=== PATIENT | female | born 1995 | race African-American/Black ===

== ENCOUNTER 2017-02-02 14:30 | Emergency (ER) | payer MEDICAID, OTHER ==
[~2017-02-02] VITALS: Ht 157.5 cm; Wt 71.0 kg
[~2017-02-02 14:30] MED LIST: ATOM60 PO; GUAN1 PO; Z.0.NO CURRENT MEDS
[2017-02-02 14:32] VITALS: BP 152/72; PULSE 95; RESP 16; TEMP 98; O2SAT 99
[2017-02-02] MEDS ORDERED: SODIUM CHLOR 0.9% 1000 ML INJ 1,000 ML IV ONE (14:57)
[2017-02-02] MEDS: ONDANSETRON HCL 4 MG/2 ML VIAL IV PUSH ONE ×2 (15:00→15:50)
[2017-02-02] MEDS ORDERED: SODIUM CHLORIDE 0.9% FLUSH 10 ML FLUSH IVF PRN (15:00)
--- NOTE | 2017-02-02 15:02 | PD ---
HPI Chief Complaint: GI Complaint Time Seen by Provider: 14:53 Travel History International Travel<30 days: No Contact w/Intl Traveler<30days: No Traveled to known affect area: No History of Present Illness HPI 21-year-old female presents to the emergency department for evaluation nausea and vomiting that started yesterday. She states she vomited twice yesterday and has been nauseous all day today. Patient denies any fevers or chills. No cough or congestion. No chest pain or shortness breath. No abdominal pain. No diarrhea or constipation. Patient does not believe she is , but is unsure. Patient has no medical problems and takes no prescribed medications. No exacerbating or alleviating factors. Moderate severity. PFSH Past Medical History Hx Anticoagulant Therapy: No ADHD: Yes Cardiovascular Problems: No Chemotherapy: No Cerebrovascular Accident: No Developmental Delay: No Diabetes: No Diminished Hearing: No Respiratory: No Immunizations Current: Yes ?: Unknown LMP: she does not remember Past Surgical History Hysterectomy: No Social History Alcohol Use: No Tobacco Use: No Substance Use: No Allergies-Medications (Allergen,Severity, Reaction): Coded Allergies: No Known Allergies (Verified , 10/29/11) Reported Meds & Prescriptions Reported Meds & Active Scripts Active Macrobid (Nitrofurantoin Monohydrate Macrocrystals) 100 Mg Capsule 100 Mg PO BID 7 Days Tenex (Guanfacine HCl) 1 Mg Tab 1 Mg PO HS Strattera (Atomoxetine HCl) 60 Mg Cap 60 Mg PO DAILY Reported No Current Meds (Miscellaneous Medication) Misc Review of Systems Except as stated in HPI: all other systems reviewed are Neg Physical Exam Narrative GENERAL: Well-nourished, well-developed female patient, ambulatory. Afebrile. SKIN: Focused skin assessment warm/dry. HEAD: Normocephalic. Atraumatic. No meningeal signs. EYES: No scleral icterus. No injection or drainage. NECK: Supple, trachea midline. No JVD or lymphadenopathy. CARDIOVASCULAR: Regular rate and rhythm without murmurs, gallops, or rubs. RESPIRATORY: Breath sounds equal bilaterally. No accessory muscle use. Lungs sounds are clear to auscultation. GASTROINTESTINAL: Abdomen soft, non-tender, nondistended. MUSCULOSKELETAL: No cyanosis, or edema. BACK: Nontender without obvious deformity. No CVA tenderness. GENITOURINARY: Normal external genitalia without lesions or erythema. Vaginal vault with small amount of white drainage. Cervical os was closed without drainage. No cervical motion tenderness. Uterus nontender and nonenlarged. Bilateral adnexa nontender without masses. This exam was done with RN at bedside. Data Data Last Documented VS Vital Signs Date Time Temp Pulse Resp B/P (MAP) Pulse Ox O2 Delivery O2 Flow Rate FiO2 02/02/17 14:32 98.0 95 16 152/72 (98) 99 Orders Orders Complete Blood Count With Diff (02/02/17 14:57) Basic Metabolic Panel (Bmp) (02/02/17 14:57) Urinalysis - C+S If Indicated (02/02/17 14:57) Iv Access Insert/Monitor (02/02/17 14:57) Ecg Monitoring (02/02/17 14:57) Oximetry (02/02/17 14:57) Ondansetron Inj (Zofran Inj) (02/02/17 15:00) Sodium Chlor 0.9% 1000 Ml Inj (Ns 1000 M (02/02/17 14:57) Sodium Chloride 0.9% Flush (Ns Flush) (02/02/17 15:00) Ed Urine Pregnancytest Poc (02/02/17 14:57) Gc And Chlamydia Pcr (02/02/17 16:03) Wet Prep Profile (02/02/17 16:03) Urine Culture (02/02/17 16:08) Labs Laboratory Tests Test 02/02/17 15:05 02/02/17 15:15 02/02/17 15:24 02/02/17 15:25 Urine Color YELLOW Urine Turbidity CLEAR Urine pH 6.5 Urine Specific [place] 1.036 Urine Protein 30 mg/dL Urine Glucose (UA) NEG mg/dL Urine Ketones TRACE mg/dL Urine Occult Blood NEG Urine Nitrite NEG Urine Bilirubin NEG Urine Urobilinogen 2.0 MG/DL Urine Leukocyte Esterase MOD Urine RBC LESS THAN 1 /hpf Urine WBC 2 /hpf Urine Squamous Epithelial Cells 5 /hpf Urine Bacteria OCC /hpf Urine Mucus FEW /lpf Microscopic Urinalysis Comment CULT NOT INDICATED White Blood Count 18.0 TH/MM3 Red Blood Count 3.52 MIL/MM3 Hemoglobin 12.4 GM/DL Hematocrit 36.6 % Mean Corpuscular Volume 104.0 FL Mean Corpuscular Hemoglobin 35.4 PG Mean Corpuscular Hemoglobin Concent 34.0 % Red Cell Distribution Width 12.9 % Platelet Count 249 TH/MM3 Mean Platelet Volume 9.7 FL Neutrophils (%) (Auto) 74.5 % Lymphocytes (%) (Auto) 16.1 % Monocytes (%) (Auto) 9.1 % Eosinophils (%) (Auto) 0.1 % Basophils (%) (Auto) 0.2 % Neutrophils # (Auto) 13.4 TH/MM3 Lymphocytes # (Auto) 2.9 TH/MM3 Monocytes # (Auto) 1.6 TH/MM3 Eosinophils # (Auto) 0.0 TH/MM3 Basophils # (Auto) 0.0 TH/MM3 CBC Comment DIFF FINAL Differential Comment Blood Urea Nitrogen 12 MG/DL Creatinine 0.52 MG/DL Random Glucose 76 MG/DL Calcium Level 8.1 MG/DL Sodium Level 138 MEQ/L Potassium Level 4.0 MEQ/L Chloride Level 109 MEQ/L Carbon Dioxide Level 22.7 MEQ/L Anion Gap 6 MEQ/L Estimat Glomerular Filtration Rate 177 ML/MIN Clue Cells (Wet Prep) NONE SEEN Vaginal Trichomonas (Wet Prep) NONE SEEN Vaginal Yeast (Wet Prep) NONE SEEN MDM Medical Decision Making Medical Screen Exam Complete: Yes Emergency Medical Condition: Yes Medical Record Reviewed: Yes Differential Diagnosis Gastroenteritis versus UTI versus versus electrolyte abnormality Narrative Course 21-year-old female presents to the emergency department for evaluation nausea vomiting started yesterday. She appears well on exam. CBC, BMP, UA, urine test are ordered and pending. Patient is given normal saline 1 L IV bolus, Zofran 4 mg IV. After patient had positive test, she is asking for food and refusing Zofran. CBC shows leukocytosis 18.0. BMP shows no acute abnormality. UA shows moderate leukocyte esterase, occasional bacteria. UPT is positive. Shows leukocytosis of 18.0. Her abdomen is completely benign on exam. She denies any abnormal vaginal discharge or risk of STDs. However, pelvic exam will be performed for further evaluation. Wet prep is negative. Patient reports being with the same sexual partner for 5 years. She has no CMT on exam. Patient will be discharged prescription for Macrobid for bacteriuria in the urine. She is to follow-up with an ramp agent. She verbalizes agreement. Prior evaluation, patient is talking on her cell phone and is in no distress. The patient was discharged in stable condition with instructions, including return instructions and follow up instructions. Diagnosis Primary Impression: Qualified Codes: Z34.90 - Encounter for supervision of normal , unspecified, unspecified trimester Additional Impression: Urinary tract infection Qualified Codes: N30.00 - Acute cystitis without hematuria Referrals: [facility] call for appointment Patient Instructions: First Trimester (ED), General Instructions Additional Instructions: Take Macrobid as directed until gone for UTI. Follow-up with an ramp agent. Return to the emergency department for any acute worsening of symptoms. Med/Other Pt SpecificInfo: Prescription(s) given Scripts Nitrofurantoin Monohydrate Macrocrystals (Macrobid) 100 Mg Capsule 100 MG PO BID for Infection for 7 Days, #14 CAP 0 Refills Prov: Rosa Bhardwaj 02/02/17 Disposition: 01 DISCHARGE HOME Condition: Stable Rosa Bhardwaj Feb 02, 2017 15:02
[2017-02-02 15:44] LABS: AUTOMATED NEUTROPHIL # 13.4 TH/MM3 (1.8-7.7); BASOPHIL % 0.2 % (0.0-2.0); EOSINOPHIL % 0.1 % (0.0-4.0); HEMATOCRIT 36.6 % (35.0-46.0); HEMO FLAGS DIFF FINAL; LYMPH % 16.1 % (9.0-44.0); LYMPHOCYTE # 2.9 TH/MM3 (1.0-4.8); MEAN CORPUSCULAR HEMOGLOBIN 35.4 PG (27.0-34.0); MONO % 9.1 % (0.0-8.0); NEUT % 74.5 % (16.0-70.0); PLATELET COUNT 249 TH/MM3 (150-450); RED BLOOD COUNT 3.52 MIL/MM3 (4.00-5.30); RED CELL DISTRIBUTION WIDTH 12.9 % (11.6-17.2)
[2017-02-02 15:47] LABS: BACTERIA, URINE OCC /hpf; BLOOD, URINE NEG (NEG); GLUCOSE,URINE NEG (NEG); KETONE, URINE TRACE mg/dL (NEG); MUCUS URINE FEW /lpf (OCC); NITRITE,URINE NEG (NEG); PH, URINE 6.5 (5.0-8.5); SQUAMOUS EPITHELIAL CELL URINE 5 /hpf (0-5); URINE COLOR YELLOW (YELLW/STRAW)
[2017-02-02 15:48] LABS: COMMENT (UR) CULT NOT INDICATED; CULTURE IF INDICATED CULT NOT INDICATED
[2017-02-02 16:09] LABS: BICARBONATE 22.7 MEQ/L (21.0-32.0)
[2017-02-02] MEDS ORDERED: MACR100C2 PO (16:57)
[2017-02-02 22:48] LABS: CHLAMYDIA PCR NOT DETECTED (NOT DETECT); NEISSERIA PCR NOT DETECTED (NOT DETECT)
== END 2017-02-02 17:23 | disposition home or self-care (01) ==
LOC: NEPC 14:30
DX: O23.10 Infections of bladder in pregnancy, unspecified trimester (principal); D72.829 Elevated white blood cell count, unspecified; O21.9 Vomiting of pregnancy, unspecified; Z86.59 Personal history of other mental and behavioral disorders; Z3A.00 Weeks of gestation of pregnancy not specified
CPT/HCPCS: 80048; 81001; 84703; 85025; 87086; 87210; 87491; 87591; 96360; 99285; J7030; J2405